=== PATIENT | male | born 1930 | race Caucasian/White ===

== ENCOUNTER → 2017-03-11 | Outpatient (CLI) | payer MEDICARE, OTHER ==
[~2017-03-11] MED LIST: AMIO200T2 PO; APIX2.5T2 PO; AZIT250T81 PO; DIGO0.25 PO; DUONEB 0.5 MG-33 ML IH; FNST5T PO; GLIP5TAB13 PO; INSU100V32 SC; LSNP20T PO; MAGN400T26 PO; METF850T2 PO; MTP50T PO; NITROFURANTOIN 100 MG; RANI150C4 PO; SIMV40TA2 PO; SOTA80TA PO; SPRN25T PO; TERA5CAP3 PO
[2017-03-11 10:04] LABS: BASOPHILS % (AUTO) 1 % (0-2); EOSINOPHILS # (AUTO) 0.4 10^3uL; EOSINOPHILS % (AUTO) 5 % (0-4); LYMPHOCYTES # (AUTO) 1.2 X10^3; MEAN CORPUSCULAR HEMOGLOBIN 31.2 PG (26.0-34.0); MEAN CORPUSCULAR HGB CONC 31.9 g/dL (31.0-37.0); MEAN PLATELET VOLUME 9.9 FL (6.0-9.5); MONOCYTES # (AUTO) 0.6 X10^3; MONOCYTES % (AUTO) 10 % (3-11); NEUTROPHILS # (AUTO) 4.4 X10^3; NEUTROPHILS % (AUTO) 66 % (51-67); PLATELET COUNT 212 10^3uL (150-450)
[2017-03-11 10:06] LABS: MEAN CORPUSCULAR VOLUME 98 FL (80-100)
[2017-03-11 10:30] LABS: ALBUMIN 4.1 g/dL (3.4-5.0); ANION GAP 17.4 MEQ/L (3-15); CALCULATED IONIZED CALCIUM 4.5 mg/dL (3.8-4.6); TOTAL PROTEIN 6.9 g/dL (6.4-8.5)
== END ==
LOC: LAB 09:51
PROVIDERS: ATTEND Internal Medicine
DX: Z00.00 Encounter for general adult medical examination without abnormal findings (principal); E11.9 Type 2 diabetes mellitus without complications; E78.4 Other hyperlipidemia; I10 Essential (primary) hypertension
CPT/HCPCS: 36415; 80053; 80061; 83036; 84443; 85025